=== PATIENT | male | born 1995 | race American Indian/Alaskan Native ===

== ENCOUNTER 2017-02-14 21:07 | Emergency (ER) | payer MEDICAID ==
[2017-02-14 23:27] VITALS: BP 131/90
[2017-02-15] MEDS ORDERED: BACTRIM DS PO ONE (00:57)
--- NOTE | 2017-02-15 01:01 | Emergency Department Report ---
HPI - General Chief Complaint: Dental/Oral Time Seen by Provider: 02/15/17 00:57 - HPI HPI: This is a 22-year-old Afro-[place] male presents to the emergency department from home with complaint of a small laceration to the inside of the right lower lip that occurred while the patient was playing basketball just prior to presentation, earlier today. There is a small amount of bleeding at the time that has since stopped. He denies any pain or possibility of loose teeth. He denies any problems with swallowing or any trauma to the tongue. He does not have any past medical history. He has a primary care doctor for follow-up. He did not take anything for his symptoms prior to presentation. He says he is up- to-date with tetanus vaccination. ED Past Medical Hx - Past Medical History Previous Medical History?: No - Surgical History Past Surgical History?: No Additional Surgical History: Testicular repair - Social History Smoking Status: Current Some Day Smoker Substance Use Type: Alcohol - Medications Home Medications: Home Medications Medication Instructions Recorded Confirmed Last Taken Type Sulfamethoxazole/Trimethoprim 1 each PO BID #10 tablet 02/15/17 Unknown Rx [Bactrim DS TAB] ED Review of Systems ROS: Stated complaint: MOUTH INJURY Other details as noted in HPI Comment: All other systems reviewed and negative Constitutional: denies: chills, fever Eyes: denies: eye pain, eye discharge, vision change ENT: other (lip laceration). denies: ear pain, throat pain Cardiovascular: denies: chest pain, palpitations Gastrointestinal: denies: abdominal pain, nausea, diarrhea Genitourinary: denies: urgency, dysuria Musculoskeletal: denies: back pain, joint swelling, arthralgia Skin: denies: rash, change in color Neurological: denies: headache, weakness, paresthesias Physical Exam - Physical Exam Vital Signs: Vital Signs 02/14/17 23:22 Temperature 98.3 F Pulse Rate 69 Respiratory 18 Rate Blood Pressure 131/90 O2 Sat by Pulse 99 Oximetry Physical Exam: GENERAL: The patient is well-developed well-nourished. HEENT: Normocephalic. Atraumatic. Extraocular motions are intact. Patient has moist mucous membranes. Oropharynx clear. No drooling or trismus. There is a small laceration to the inside of the right lower lip that is about 0.5 cm in length. There is no significant gap. No current bleeding and no signs of infection. NECK: Supple. Trachea is midline. CHEST/LUNGS: Clear to auscultation. There is no respiratory distress noted. HEART/CARDIOVASCULAR: Regular. There is no tachycardia. There is no gallop rub or murmur. ABDOMEN: Abdomen is soft, nontender. SKIN: There is a small laceration to the inside of the right lower lip that is about 0.5 cm in length. There is no significant gap. No current bleeding and no signs of infection. NEURO: The patient is awake, alert, and oriented. The patient is cooperative. The patient has no focal neurologic deficits. The patient has normal speech and gait. MUSCULOSKELETAL: There is no tenderness or deformity. There is no evidence of acute injury. ED Course Vital Signs 02/14/17 23:22 Temperature 98.3 F Pulse Rate 69 Respiratory 18 Rate Blood Pressure 131/90 O2 Sat by Pulse 99 Oximetry ED Medical Decision Making - Medical Decision Making 22-year-old male presents with a small right lower inside lip laceration after being hit in the mouth while playing basketball. There is a 0.5 cm laceration that barely has any And does not appear to need any suture or laceration repair. There is no current bleeding and no signs of infection. I spoke with the patient about staying away from foods that have small seeds and foods that are spicy and/or salty. He was given a first dose of antibiotics here and will go home on a five-day course. He will follow-up with his primary care physician. He will return to the ER with any worsening of symptoms, signs of infection, or any acute distress. Critical Care Time: No Critical care attestation.: If time is entered above; I have spent that time in minutes in the direct care of this critically ill patient, excluding procedure time. ED Disposition Clinical Impression: Lip laceration Qualifiers: Encounter type: initial encounter Qualified Code(s): S01.511A - Laceration without foreign body of lip, initial encounter Disposition: TO HOME OR SELFCARE Is pt being admited?: No Condition: Stable Instructions: Laceration (ED) Additional Instructions: Please follow-up with your primary care doctor in the next few days. Take the antibiotics as prescribed. Stay away from foods that have small seeds, or anything that is excessively salty or spicy. Return to the emergency department with any worsening of your symptoms, swelling of the lip, discharge of pus, or any signs or symptoms of infection, or any acute distress. Prescriptions: Sulfamethoxazole/Trimethoprim [Bactrim DS TAB] 1 each PO BID #10 tablet Referrals: PRIMARY CARE, [Referring] - 3-5 Days Time of Disposition: 01:01
== END 2017-02-15 01:09 | disposition home or self-care (01) ==
LOC: ED 21:07
DX: S01.511A Laceration without foreign body of lip, initial encounter (principal); F17.200 Nicotine dependence, unspecified, uncomplicated; W21.05XA Struck by basketball, initial encounter; Y93.9 Activity, unspecified; Y92.9 Unspecified place or not applicable; Y99.9 Unspecified external cause status
CPT/HCPCS: 99282

== ENCOUNTER 2019-12-05 19:50 | Emergency (ER) | payer SELFPAY ==
--- NOTE | 2019-12-05 20:06 | Event Note ---
ED Screening Note Date of service: 12/05/19 Time: 20:05 ED Screening Note: 24 y/o male comes in for penile discomfort. This initial assessment/diagnostic orders/clinical plan/treatment(s) is/are subject to change based on patients health status, clinical progression and re- assessment by fellow clinical providers in the ED. Further treatment and workup at subsequent clinical providers discretion. Patient/guardian urged not to elope from the ED as their condition may be serious if not clinically assessed and managed. Initial orders include:
[2019-12-05 21:17] VITALS: BP 150/89
[2019-12-05 22:00] LABS: Bilirubin,Urine NEG (Negative); Blood,Urine SM (Negative); Color,Urine Yellow (Yellow); Mucus,Urine 3+ /HPF; Protein,Urine <15 mg/dL mg/dL (Negative)
== END 2019-12-05 23:14 | disposition home or self-care (01) ==
LOC: ED 19:50
DX: R30.9 Painful micturition, unspecified (principal); Z53.21 Procedure and treatment not carried out due to patient leaving prior to being seen by health care provider
CPT/HCPCS: 81001